=== PATIENT | female | born 1960 | race Caucasian/White ===

== ENCOUNTER → 2016-06-12 | Outpatient (CLI) | payer OTHER | LOC: HEART 5 05-26 09:30 | DX: R07.9 Chest pain, unspecified (principal); R00.2 Palpitations ==

== ENCOUNTER → 2016-06-19 | Outpatient (CLI) | payer OTHER | LOC: HEART 5 14:24 | DX: R00.2 Palpitations (principal) | CPT/HCPCS: 93306 ==

== ENCOUNTER → 2021-01-18 | Outpatient (CLI) | payer OTHER ==
[~2021-01-18] MED LIST: CALCIUM500 MG PO; GABAPENTIN300 MG PO; MULTI-VITAMIN1 EACH PO; NORCO 7.5-3251 EACH PO; SYNTHROID 100100 MCG PO; VITAMIN D1000 UNI1 PO; VOLTAREN EC 5050 MG PO; ZANAFLEX2 MG PO
== END ==
LOC: ECHO 11:00
DX: I35.1 Nonrheumatic aortic (valve) insufficiency (principal)
CPT/HCPCS: ECHO; 93306

== ENCOUNTER → 2021-06-28 | Outpatient (CLI) | payer OTHER | LOC: EXRD 09:35 | DX: R31.9 Hematuria, unspecified (principal); R06.02 Shortness of breath; K59.00 Constipation, unspecified | CPT/HCPCS: 71046; 74018 ==

== ENCOUNTER → 2021-11-14 | Outpatient (CLI) | payer OTHER | LOC: MAMO 10:25 | DX: Z12.31 Encounter for screening mammogram for malignant neoplasm of breast (principal) | CPT/HCPCS: 77063; 77067 ==

== ENCOUNTER → 2021-11-21 | Outpatient (CLI) | payer OTHER | LOC: EXRD 10:06 → RAD 10:06 | DX: M54.50 Low back pain, unspecified (principal); M54.2 Cervicalgia; M89.8X1 Other specified disorders of bone, shoulder; M47.812 Spondylosis without myelopathy or radiculopathy, cervical region; M47.814 Spondylosis without myelopathy or radiculopathy, thoracic region; M47.816 Spondylosis without myelopathy or radiculopathy, lumbar region | CPT/HCPCS: 72040; 72072; 72100; 73010 ==